=== PATIENT | female | born 1960 | race Caucasian/White ===

== ENCOUNTER 2023-03-04 10:15 | Outpatient (RCR) | payer BC, SELFPAY | END 2023-04-01 14:21 | disposition home or self-care (01) | PROVIDERS: PCP Family Medicine; Visit Provider Orthopaedic Surgery | DX: M17.12 Unilateral primary osteoarthritis, left knee (principal); M25.562 Pain in left knee; G89.29 Other chronic pain; Z51.89 Encounter for other specified aftercare | CPT/HCPCS: 97110; 97112; 97163 ==

== ENCOUNTER 2024-01-29 16:38 | Outpatient (CLI) | payer BC, SELFPAY ==
--- OUTSIDE RECORDS SUMMARY | 2024-02-18 14:44 | XMS_ITS | Clinical Summary ---
Author Organization [facility] [facility] Address [place], [place] [address] Care Team Providers Care Rv Repair Technician Name Role Phone Unavailable Primary Care Provider Unavailabl e Allergies Active Allergy Reactions Criticality Noted Date Comments Acetaminophen Nausea And Vomiting 11/01/2021 Medications Medication Sig Dispensed Refills Start Date End Date Status chlorthalidone (HYGROTON) 25 mg tabletIndications:HTN (hypertension) Take 0.5 Tablets (12.5 mg) by mouth every morning. 45 Tablet 3 09/13/2022 Active potassium chloride (KLOR-CON 10; K-TAB) 10 mEq Controlled-Release tabletIndications:HTN (hypertension) Take 1 Tablet (10 mEq) by mouth once daily with a meal. 90 Tablet 3 09/13/2022 Active estradioL (ESTRACE) 0.01% (0.1 mg/g) vaginal creamIndications:Post menopausal atrophic vaginitis Use the 2 grams vaginally nightly for 1-2 weeks, then use 1 gram one to three times weekly as needed for vaginal dryness after that 42.5 g 3 09/13/2022 Active thiamine (Vitamin B-1) 100 mg tablet Take 1 Tablet (100 mg) by mouth once daily. 0 12/06/2022 Active overnight oximetryIndications:N octurnal hypoxemia For home use. On Room Air no; On Oxygen yes if yes @?2LPM; On CPAP yes; On BiPAP no 1 Each 12/19/2022 Active CPAPIndications:Noctu rnal hypoxemia CPAP machine for home use at pressure 6-15 cmw, nasal mask x1/3month with nasal cushion x2/mo 1 Each 11 12/19/2022 Active albuterol HFA (PRO-AIR; VENTOLIN; PROVENTIL) 90 mcg/actuation inhalerIndications:SO B (shortness of breath) Inhale 2 Puffs by mouth every 4 hours if needed for Shortness Of Breath. 1 Each 1 01/16/2023 Active dextroamphetamine-amp hetamine (Adderall XR) 10 mg Extended-Release capsuleIndications:At tention deficit hyperactivity disorder (ADHD), combined type Take 1 Capsule (10 mg) by mouth once daily. Dose decrease 01/16/23 30 Capsule 01/16/2023 Active lisinopriL (PRINIVIL; ZESTRIL) 20 mg tabletIndications:HTN (hypertension) TAKE ONE TABLET BY MOUTH ONCE DAILY 90 Tablet 10/28/2023 Active Active Problems Problem Noted Date Diagnosed Date Absence of both cervix and uterus, acquired 12/2022 Primary osteoarthritis of left knee 12/21/2022 Attention deficit hyperactiv ity disorder (ADHD), combined type 12/06/2022 HTN (hypertension) 02/27/2022 Chronic constipation 11/01/2021 Immunizations Name Administration Dates Next Due COVID-19 vaccine (Moderna 10 0mcg/0.5mL) PF, MDV 08/13/2021,12/20/2020,11/22/2020 COVID-19 vaccine ([employer] 30mcg/0.3mL) 12YO+ ADRIAN-SUCROSE PF, MDV 02/27/2022 Influenza, IIV4 09/13/2022,08/20/2021 Influenza,CCIIV4 PRESERV FREE 06/08/2020 Td (Age >=7 Years) 04/03/2002 Tdap 02/27/2022,01/14/2008 Family History Medical History Relation Name Comments Cancer-breast Mother Cancer-breast Other Mat. Great Aunt Cancer-ovarian No Family History Relation Name Status Comments Mother Other Mat. Great Aunt Social History Tobacco Use Types Packs/Day Years Used Date Smoking Tobacco: Never Smokeless Tobacco: Never Tobacco Cessation:Counseling Given: Yes PHQ-2 Answer Date Recorded PHQ-2 TOTAL SCORE 2 11/26/2022 Social Connections Answer Date Recorded Frequency of Communication with Friends and Fami ly Not on file 09/16/2023 Financial Resource Strain Answer Date R ecorded Difficulty of Paying Living Expenses 3 09/13/2022 Difficulty of Paying Living Expenses Not on file 09/13/2022 Food Insecurity Answer Date Recorded Worried About Running Out of Food in the Last Ye ar 1 09/13/2022 Transportation Needs Answer Date Record ed Lack of Transportation (Medical) 1 09/13/2022 Housing Stability Answer Date Recorded Unable to Pay for Housing in the Last Year 1 09/13/2022 Sex and Gender Information Value Date Recorded Sex Assigned at Not on file Gender Identity Not on file Sexual Orientation Not on file Obstetrics History Last Filed Vital Signs Vital Sign Reading Time Taken Comments Blood Pressure 133/82 01/03/2023 11:03 AM CDT Pulse 90 01/03/2023 11:03 AM CDT Temperature - - Respiratory Rate - - Oxygen Saturation 98% 01/03/2023 11:03 AM CDT Inhaled Oxygen Concentration - - Weight 105.7 kg (233 lb) 01/03/2023 11:03 AM CDT Height 156.5 cm (5' 1.61) 12/19/2022 11:08 AM C DT Body Mass Index 43.16 12/19/2022 11:08 AM CDT Plan of Treatment Health Maintenance Due Date Last Done Comments Zoster (shingles) series for age 50+ (1 of 2) 2008 COVID-19 vaccine series (2022-24 season) 2023 08/17/2022, 02/27/2022, 08/13/2021, Additional history exists Fecal testing non-DNA (FIT,FOBT,iFOBT) for age 45-75 05/04/2023 05/04/2022 Mammogram for age 45-75 09/19/2023 09/19/2022 Depression screening for age 12+ 11/27/2023 11/26/2022, 11/13/2022, 09/13/2022, Additional history exists DEXA/DXA scan for age 65+ 12/18/2023 Pneumococcal series for age 65+ (1 of 1 - PCV) 12/18/2023 BMI (ht and wt on same day) for age 18+ 12/20/2023 12/19/2022, 09/13/2022, 11/01/2021 Influenza for age 65+ 05/03/2024 09/13/2022 , 08/20/2021, 06/08/2020 Lipids for age 45-75 09/13/2027 09/13/2022, 11/02/19 22 Tetanus booster 02/28/2032 02/27/2022, 12/31, 04/03/2002 Hepatitis C screening for ag e 18-79 Completed 02/27/2022 Tdap Completed 02/27/2022, 01/14/2008 HIV for age 15-65 Completed 09/13/2022 Procedures Procedure Name Priority Date/Time Associated Diagnosis Comments XR MAMMO BILAT SCREENING Routine 09/19/2022 4:14 PM ELECTROMATIC TYPIST Encounter for screening mammogram for malignant neoplasm of breast LC HIV-1/O/2, 4TH GENERATION Routine 09/13/2022 12:43 PM ELECTROMATIC TYPIST Encounter for screening for HIV LC LIPID PANEL AND CHOL/HDL RATIO Routine 09/13/2022 12:43 PM ELECTROMATIC TYPIST Screening for lipid disorders OCCULT BLOOD IFOBT STOOL Routine 05/04/2022 3:48 PM CDT Screening for colorectal cancer ANTI HCV Routine 02/27/2022 10:35 AM CDT Need for hepatitis C screening test from Last 3 Months or Most Recently Relevant to Health Maintenance Results * XR MAMMO BILAT SCREENING (09/19/2022 4:14 PM ELECTROMATIC TYPIST) Anatomical Region Laterality Modality BREASTS, Breast Left, Breast Right Bilateral Mammography Impressions 09/21/2022 3:36 PM ELECTROMATIC TYPIST ??There is no radiographic evidence for malignancy. ??Recommend annual mammograms. MAMMOGRAM ASSESSMENT: ??ACR 1 Negative PATIENTS: You will also receive a letter with your examination results in an easy to read format. ??If you have questions about your results, please contact your referring provider. Narrative 09/21/2022 3:36 PM ELECTROMATIC TYPIST For Patients: As a result of the Century Cures Act, medical imaging exams and procedure reports are released immediately into your electronic medical record. You may view this report before your referring provider. If you have questions, please contact your health care provider. XR MAMMO BILAT SCREENING [[id number]] CLINICAL HISTORY: ??This is an asymptomatic 61 y.o. patient. INDICATION FOR EXAM: Mammogram Screening. TECHNIQUE: CC & MLO views were obtained. ??This study was evaluated with the assistance of Computer-Aided Detection. COMPARISON FILM: Yes 02/26/17 Outside Facility 11/04/14 Outside Facility FINDINGS: ??The breasts have scattered areas of fibroglandular density. There are no dominant masses, suspicious micro calcifications or areas of architectural distortion. Lizzette Pinon PA MAMMO * (ABNORMAL) LC LIPID PANEL AND CHOL/HDL RATIO (09/13/2022 12:43 PM ELECTROMATIC TYPIST) Pathologist [facility] Cholesterol, Total 237(H) 100 - 199 mg/dL 09/15/2022 7:15 AM [facility] Triglycerides 200(H) 0 - 149 mg/dL 09/15/2022 7:15 AM [facility] HDL Cholesterol 45 >39 mg/dL 7:15 AM [facility] ([facility] VLDL Cholesterol Venkat 37 5 - 40 mg/dL 09/15/2022 7:15 AM [facility] LDL Chol Calc (NIH) 155(H) 0 - 99 mg/dL 09/15/2022 7:15 AM [facility] T. Chol/HDL Ratio 5.3(H) 0.0 - 4.4 ratio 09/15/2022 7:15 AM [facility] ([facility]) Comment: ?T. Chol/HDL Ratio ?Men ??Women ?1/2 Avg.Risk ??3.4 ?3.3 ?Avg.Risk ??5.0 ?4.4 ? 2X Avg.Risk ??9.6 ?7.1 ? 3X Avg.Risk 23.4 ?? 11.0 Blood BLOOD SPECIMEN / Unknown Venipuncture / Unknown 09/13/2022 12:43 PM ELECTROMATIC TYPIST 09/13/2022 12:44 PM ELECTROMATIC TYPIST Narrative [facility] ([facility]) - 09/15/2022 7:15 AM ELECTROMATIC TYPIST Performed at: ??01 - [facility] [address], [place] ??[id number] Director Of Cloud Services: Ayden David MD, Phone: ??[phone] [place] [facility] [place] ([facility]) [facility] [id number], * HIV-1/O/2, 4TH GENERATION (09/13/2022 12:43 PM ELECTROMATIC TYPIST) HIV Scr 4th Gen Non Reactive Non Reactive 09/15/2022 11:08 AM ELECTROMATIC TYPIST [facility] ([facility]) Comment: HIV Negative HIV-1/HIV-2 antibodies and HIV-1 p24 antigen were NOT detected. There is no laboratory evidence of HIV infection. Blood BLOOD SPECIMEN / Unknown Venipuncture / Unknown 09/13/2022 12:43 PM ELECTROMATIC TYPIST 09/13/2022 12:44 PM ELECTROMATIC TYPIST Narrative [facility] ([facility]) - 09/15/2022 11:08 AM ELECTROMATIC TYPIST Performed at: ??01 - [facility] [address], [place] ??[id number] Director Of Cloud Services: Ayden David MD, Phone: ??[phone] [place] [facility] ([facility]) [facility] * OCCULT BLOOD IFOBT STOOL (05/04/2022 3:48 PM CDT) STOOL BLOOD ,IFOBT Negative Negative 05/11/2022 10:51 AM CDT [facility] Stool STOOL SPECIMEN / Unknown Non-Blood / Unknown 05/04/2022 3:48 PM CDT 05/10/2022 3:48 PM CDT [place] [facility] [address] [place] [address], * ANTI HCV (02/27/2022 10:35 AM CDT) HEPATITIS C ANTIBODY Non-React zbigniew Non-React zbigniew 02/27/2022 7:22 PM CDT [facility] Comment:Antibodies to HCV no t detected; does not exclude the possibility of exposure to HCV. Blood BLOOD SPECIMEN / Unknown Venipuncture / Unknown 02/27/2022 10:35 AM CDT 02/27/2022 10:38 AM CDT [place] [facility] [place] [address] [place] [address], [place] from Last 3 Months or Most Recently Relevant to Health Maintenance
== END 2024-01-29 16:39 | disposition home or self-care (01) ==
LOC: NFLDREF 02-18 14:42
PROVIDERS: PCP Internal Medicine; Referring Provider Internal Medicine; Visit Provider Internal Medicine
DX: N39.0 Urinary tract infection, site not specified (principal); R39.9 Unspecified symptoms and signs involving the genitourinary system; I10 Essential (primary) hypertension
CPT/HCPCS: 87086; 87186

== ENCOUNTER 2024-03-06 08:11 | Outpatient (CLI) | payer BC, SELFPAY ==
--- OUTSIDE RECORDS SUMMARY | 2024-03-08 09:18 | XMS_ITS | Data Portability ---
Author Organization [facility], [facility] Address [address] [place] [address] Care Team Providers Care Crime Prevention Worker Name Role Phone ANA PATHAK Referring Provider [phone] Assessment No assessment recorded. Plan of Treatment Reminders Order Date Submit Date Provider Last Modified By Organization Details Last Modified Time Details Appointments None recorded. Lab urinalysis , dipstick 2022 023 [facility], [address], [place], [address], 3 16:02:09 culture, urine 2022 023 [facility], [address], [place], [address], 3 09:52:55 Referral patient navigator referral 2022 023 [email or web address] [id number] Not available 3 07:08:48 Procedures None recorded. Surgeries None recorded. Imaging None recorded. Medication Orders Myrbetriq 50 mg tablet,ext ended release [address], [address], 3 16:11:02 Patient TargetsNo targets recorded. Patient Instructions Encounter Date Encounter Id Patient Instructions Last Modified By Organization Details Last Modified Time 01/17/2023 [id number] Lisa present s today for voiding complaints, most likely mixed incontinence - UA: ket 40, pro trace, nitr pos, trac leuk. will culture and call w results, less likely to treat bc asymptomatic - in/out cath: 5cc - cont wiith CPAP usage - diuretic will cause increased freq/urge - stop fluids 2-3 hours before bedtime - We discussed the underlying causes for OAB, as well as the conservative treatments. The OAB Pathway was reviewed, including fluid restriction, bladder irritants, and physical therapy. - Advanced treatments, including PTNS, sacral neuromodulation and Botox were also discussed and compared. Risks including retention, infections, device implant/malfunction , lead migration, repeat treatments all reviewed in detail. For now, we will start with: - anticholinergic: CI with potassium - myrb 50mg QHS - pelvic floor PT: wants to hold - nurse maisha Marshallator - atrophic vaginitis: using 2x/week Some component of stress urinary incontinence - hold for now - pelvic floor PT - refer to MD for consultation for sling Follow up in 2 months [email or web address] Not available 01/17/2023 16:09:57 Reason for Referral Referring Physician: Edison Araujo, Urology, Encounter Date: 01/17/2023 Results Created Date Observation Date Name Description Value Unit Range Abnormal Flag LastModifiedBy Organization Detail LastModifiedTime 01/18/2001/17/2023 UA WITHO UT MICRO PLYMO UTH color-status YELLOW yellow Not Available [facility] [address] [facility] [address], [place], [address], 01/17/2023 16:02:09 01/18/20 23 01/17/2023 UA WITHO UT MICRO PLYMO UTH clarity-stat us CLEAR clear Not Available [facility] [address] [facility] [address], [place], [address], 01/17/2023 16:02:09 01/18/20 23 01/17/2023 UA WITHO UT MICRO PLYMO UTH glucose-stat us NEGATI VE mg/dL negati ve Not Available [facility] [address] [facility] [address], [place], [address], 01/17/2023 16:02:09 01/18/20 23 01/17/2023 UA WITHO UT MICRO PLYMO UTH bilirubin-ur ine NEGATI VE negati ve Not Available [facility] [address] [facility] [address], [place], [address], 01/17/2023 16:02:09 01/18/20 23 01/17/2023 UA WITHO UT MICRO PLYMO UTH ketones-stat us 40 MG/DL mg/dL negati ve abnormal Not Available [facility] [address] [facility] [address], [place], [address], 01/17/2023 16:02:09 01/18/20 23 01/17/2023 UA WITHO UT MICRO PLYMO UTH SG-status 1.015 1.00-1 .03 Not Available [facility] [address] [place] [address] [address], [place], [address], 01/17/2023 16:02:09 01/18/20 23 01/17/2023 UA WITHO UT MICRO PLYMO UTH pH-status 7.0 5.00-8 .00 Not Available [facility] [address] [facility] [address], [place], [address], 01/17/2023 16:02:09 01/18/20 23 01/17/2023 UA WITHO UT MICRO PLYMO UTH protein-stat us TRACE mg/dL negati ve abnormal Not Available [facility] [address] [facility] [address], [place], [address], 01/17/2023 16:02:09 01/18/20 23 01/17/2023 UA WITHO UT MICRO PLYMO UTH urobilinogen -status 0.2 E.U./D L E.U./ dL 0.2 E.U./d L Not Available [facility] [address] [facility] [address], [place], [address], 01/17/2023 16:02:09 01/18/20 23 01/17/2023 UA WITHO UT MICRO PLYMO UTH nitrites-sta tus POSITI VE negati ve abnormal Not Available [facility] [address] [facility] [address], [place], [address], 01/17/2023 16:02:09 01/18/20 23 01/17/2023 UA WITHO UT MICRO PLYMO UTH blood-urine NEGATI VE negati ve Not Available [facility] [address] [facility] [address], [place], [address], 01/17/2023 16:02:09 01/18/20 23 01/17/2023 UA WITHO UT MICRO PLYMO UTH leuko-status TRACE negati ve abnormal Not Available [facility] [address] [facility] [address], [place], [address], 01/17/2023 16:02:09 01/18/20 23 01/17/2023 UA WITHO UT MICRO PLYMO UTH specimen type VOIDED Not Available [facility] [address] [facility] [address], [place], [address], 01/17/2023 16:02:09 01/18/20 23 01/17/2023 UA WITHO UT MICRO PLYMO UTH performed by PALAK Cruz Not Available [facility] [address] [facility] [address], [place], [address], 01/17/2023 16:02:09 01/18/20 23 01/17/2023 UA WITHO UT MICRO PLYMO UTH total urine volume (mL) 30 /mL Not Available [facility] [address] [facility] [address], [place], [address], 01/17/2023 16:02:09 01/18/20 23 01/17/2023 URINE CULTU RE final report MICROB IOLOGY RESULT S abnormal Not Available [facility] [address] [facility] [address], [place], [address], 01/21/2023 09:52:55 Result Notes None recorded. Problems Name Status Onset Date Resolution Date Notes Provider Name and Address Organization Details Recorded Time Increased frequency of urination Active 01/18/20 23 LISA ARAUJO [facility] [address] [place] [address],[address] [place] [address], [phone], [facility] 01/17/2023 11:18:21 Nocturia Active 01/18/20 23 LISA VAN [address], [address], [facility] 01/17/2023 11:18:24 Mixed urinary incontinence Active 01/18/20 23 LISA VAN [address], [address], [facility] 01/17/2023 15:54:55 Urinary tract infectious disease Active 01/22/20 23 LISA VAN [facility] [address] [place] [address],[address], [address], [facility] 01/21/2023 11:58:05 Problem Notes None recorded. Procedures Surgical History Date Name Laterality Status Provider Name and Address Organization Details Recorded Time 01/18/20 23 Past Data Reviewed completed LISARONY ARAUJO [address], [address], [facility] 01/17/2023 11:20:07 01/18/20 23 In and Out Catheterization- female completed LISA ARAUJO [address], [address], [facility] 01/17/2023 16:08:31 05/04/20 22 Fecal blood scrn immunoassay [facility] 14:51:44 02/02/19 69 Diagnostic colonoscopy completed Not Available Health Note 01/17/2023 11:00:17 Excise epiphyseal bar completed Not Available Health Note 01/17/2023 11:00:17 Total hysterectomy completed Not Available Health Note 01/17/2023 11:00:17 Imaging Results None recorded. Procedure Notes None recorded. Medical Equipment None Reported. Allergies Allergen ID Allergen Name Allergen Category Reaction Reaction Severity Criticality Documentation Date Start Date Code Code System Note Provider Name and Address Organization Details Recorded Time 513118 acetamino phen medicatio n dizziness nausea Not available Not available Not available 01/17/2023 161 RxNorm Not Available Health Note 11:00:16 Medications Name Sig Start Date Stop Date Status Note LastModified by Organization Details LastModified Time flowflex kit test 01/17 completed Not Available Not Available Not Available flowflex covid-19 ag home t FOR HOME USE 01/17 completed Not Available Not Available Not Available lisinopril 20 mg tablet active Not Available Not Available Not Available potassium chloride ER 10 mEq tablet,exte nded release active Not Available Not Available Not Available chlorthalid one 25 mg tablet active Not Available Not Available Not Available ciprofloxac in 250 mg tablet 01/17 completed Not Available Not Available Not Available dextroamphe tamine-amph etamine ER 20 mg 24hr capsule,ext end release 20 mg 1/day active Not Available Not Available No t Available cephalexin 500 mg capsule 01/17 completed Not Available Not Available Not Available methylpheni date ER 20 mg tablet,exte nded release 01/17 completed Not Available Not Available Not Available dextroamphe tamine-amph etamine ER 10 mg 24hr capsule,ext end release TAKE ONE CAPSULE(1 0MG) BY MOUTH ONCE DAILY. active Not Available Not Available No t Available estradiol 0.01% (0.1 mg/gram) vaginal cream active Not Available Not Available Not Available albuterol sulfate HFA 90 mcg/actuati on aerosol inhaler INHALE 2 PUFFS BY MOUTH EVERY 4 HOURS IF NEEDED FOR SHORTNESS OF BREATH. active Not Available Not Available No t Available nitrofurant oin monohydrate /macrocryst als 100 mg capsule TAKE 1 CAPSULE BY MOUTH EVERY 12 HOURS FOR 10 DAYS. active Not Available Not Available No t Available Myrbetriq 50 mg tablet,exte nded release Take 1 tablet every day by oral route. 2022 active Not Available Not Available Not Avai lable Vitals Date Recorded Body mass index (BMI) Body weight Body height Provider Name and Address Organization Details Last Updated DateTime 01/17/2023 41.6 kg/m2 008949.3334 70366 g 160.02 cm Not Available Health Note 01/17/2023 15:30:35 Social History Question Answer Notes LastModified by Organizat ion Details LastModified Time Tobacco Smoking Status Never Smoker Not Available Health Note 01/17/2023 11:00:17 What Is Your Level Of Alcohol Consumption? Occasional [email or web address] Information not available 01/17/2023 What Is Your Level Of Caffeine Consumption? Occasional [email or web address] Information not available 01/17/2023 How Much Tobacco Do You Chew? None [email or web address] Information not available 01/17/2023 Do You Or Have You Ever Used E-cigarettes Or Vape? Never Used Electronic Cigarettes [email or web address] Information not available 01/17/2023 Number Of Pregnancies 1 [email or web address] Information not available 01/17/2023 Number Of Vaginal Deliveries 0 [email or web address] Information not available 01/17/2023 Number Of Caesarean Sections 0 [email or web address] Information not available 01/17/2023 Could You Be ? No [email or web address] Information not available 01/17/2023 What Was The Date Of Your Most Recent Tobacco Screening? 01/17/2023 [email or web address] Information not available 01/17/2023 What Is Your Relationship Status? [email or web address] Information not available 01/17/2023 Are You Sexually Active? No [email or web address] Information not available 01/17/2023 Do You Or Have You Ever Used Smokeless Tobacco? Never Used Smokeless Tobacco [email or web address] Information not available 01/17/2023 Do You Use Any Illicit Or Recreational Drugs? No [email or web address] Information not available 01/17/2023 Has Tobacco Cessation Counseling Been Provided? Yes [email or web address] Information not available 01/17/2023 On What Date Was Tobacco Cessation Counseling Provided? 01/17/2023 [email or web address] Information not available 01/17/2023 Sex: Unknown Functional Status None recorded. Mental Status None recorded. Family History Relationship Description Onset Age of this Age Resolved Age Notes Mother Family history of br east cancer Medical History Condition Response Sexually Transmitted Infection N Diabetes N Bleeding Disorder N High Blood Pressure Y Kidney Stones N Cancer N Lung Disease N Depression Y High Cholesterol N GERD/Acid Reflux Y Heart Disease N Gynecological History Statement/Question Response If Post Menopausal, Age at Menopause 38 Hormone Therapy Y Sexually Active? N Obstetrics History GPAL:G 0 P 0 0 0 0 Immunizations Vaccine Type Date Status Provider Name and Address Organization Details Recorded Time influenza, unspecified formulation 08/17/2022 completed Zuleika love, [facility] 01/17/2023 15:37:21 SARS-COV-2 (COVID-19) vaccine, UNSPECIFIED 08/17/2022 completed Zuleika love, [facility] 01/17/2023 15:37:21 Influenza, MDCK, quadrivalent, PF 06/08/2020 completed Zuleika love, [facility] 01/17/2023 15:37:21 COVID-19, mRNA, LNP-S, PF, 100 mcg/0.5mL dose or 50 mcg/0.25mL dose 11/22/2020 completed Zuleika love, [facility] 01/17/2023 15:37:21 COVID-19, mRNA, LNP-S, PF, 100 mcg/0.5mL dose or 50 mcg/0.25mL dose 12/20/2020 completed Zuleika love, [facility] 01/17/2023 15:37:21 COVID-19, mRNA, LNP-S, PF, 100 mcg/0.5mL dose or 50 mcg/0.25mL dose 08/13/2021 completed Zuleika love, [facility] 01/17/2023 15:37:21 COVID-19, mRNA, LNP-S, PF, 30 mcg/0.3 mL dose, agapito-sucrose 02/27/2022 completed Zuleika love, [facility] 01/17/2023 15:37:21 COVID-19, mRNA, LNP-S, bivalent, PF, 30 mcg/0.3 mL dose 08/17/2022 completed Zuleika love, [facility] 01/17/2023 15:37:21 Tdap 01/14/2008 completed Zuleika love, [facility] 01/17/2023 15:37:21 Tdap 02/27/2022 [facility]/17/[facility]23 15:37:21 Td (adult), 2 Lf tetanus toxoid, preservative free, adsorbed 04/03/2002 completed Zuleika love, [facility] 01/17/2023 15:37:21 Influenza, split virus, quadrivalent, PF 09/13/2022 completed Mikesinacarter Paul ivan, [facility] 01/17/2023 15:37:21 Influenza, split virus, quadrivalent, PF 08/20/2021 completed Mikesinacarter Paul ivan, [facility] 01/17/2023 15:37:21 Past Encounters Encounter ID Performer Location Encounter Start Date Encounter Closed Date Diagnosis/Indication Diagnosis SNOMED-CT Code [id number] LISA ARAUJO, PAC [facility] [address] [place] [address] 01/17/2023 15:29:06 01/18/2023 10:13:22 Increased frequency of urination [id number] Nocturia [id number] Mixed urin jordan incontinence 919681477 Health Concerns Section Related Observation LastModified by Organization Detai ls LastModified Time None Recorded Concern Status LastModified by Organization Details LastModified Time None Recorded Advance Directives Directive None Recorded Payers Encounter Date Sequence Insurance Name Policy Number Policy Kessler Covered Member ID Kessler Member ID Guarantor Name 01/17/2023 1 [place] [id number] Audie Diaz [id number] Lisa Marks Notes Date Note Type Note Provider Name and Address Organization Details Recorded Time 01/17/2023 text/html HPI Notes: 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 triggered by runnign water, urgency. urge leakage. MARTÍNEZ. Denies: hematuria using leakproof underwear, sometimes needs to change them (1-2x) Has tried: estradiol cream chlorthalidone 25mg LYDIA, CPAP - did improve nocturia frequent UTis int he past, feels theyve improved Hydration: 60 oz water Caffeine: 1 cup coffee/AM Chronic low back pain: 0 BMs: constipated Vaginal deliveries: 0 s/p hyst Chief complaint: Incontinence Incontinence: Began: 3 Years ago Incontinent of: Urine Associated symptoms: Frequent urination at night Frequency: Gradually Worse with: Diet soda or Artificial sweeteners Severity: Worse Interference with their personal, social, or work life: Definite but manageable Progression: Severe overall Overactive Bladder Pathway Questionnaire: Uses the restroom: 8 times per day Uses the restroom (daytime): every 3 hours Uses the restroom (nighttime): every 1.5 hours Accidents: 1 per day Pads: using 0 per day Urogenital Distress Inventory (FRANCINE-6): [3] Frequent urination: Greatly [3] Urine leakage related to the feeling of urgency: Greatly [3] Urine leakage related to physical activity, coughing or sneezing: Greatly [2] Small amounts of urine leakage (drops): Moderately [2] Difficulty emptying your bladder: Moderately [1] Pain or discomfort in the lower abdominal or genital area: Slightly Incontinence Impact Questionnaire (IIQ-7): [1] Ability to do hot plate plywood press offbearer (cooking, housecleaning): Slightly [2] Physical recreation such as walking, or other exercise: Moderately [2] Ability to attend entertainment activities (movie, concerts): Moderately [2] Ability to travel by car more than 30 minutes from home: Moderately [2] Participation in social activities outside your home: Moderately [2] Emotional health (nervousness, depression, etc): Moderately [3] [place] frustrated: Greatly LISA ARAUJO, JOJO [address], [place], [address], [facility] 01/17/2023 16:11:05 OBGyn Episode No OBEpisode recorded.
--- OUTSIDE RECORDS SUMMARY | 2024-03-08 09:18 | XMS_ITS | Clinical Summary ---
Author Organization [facility] Address [place], [place] [address] Care Team Providers Care Transfer Car Operator Drier Name Role Phone Unavailable Primary Care Provider [...] 10 0mcg/0.5mL) PF, MDV 08/13/2021,12/20/2020,11/22/2020 COVID-19 vaccine (Sedicidodici-Bio NTech 30mcg/0.3mL) 12YO+ ADRIAN-SUCROSE PF, MDV 02/27/2022 [...] MAMMO BILAT SCREENING Routine 09/19/2022 4:14 PM BEADER Encounter for screening mammogram for malignant neoplasm of breast LC HIV-1/O/2, 4TH GENERATION Routine 09/13/2022 12:43 PM BEADER Encounter for screening for HIV LC LIPID PANEL AND CHOL/HDL RATIO Routine 09/13/2022 12:43 PM BEADER Screening for lipid disorders OCCULT BLOOD IFOBT STOOL Routine 05/04/2022 3:48 PM CDT Screening for colorectal cancer ANTI HCV Routine 02/27/2022 10:35 AM CDT Need for hepatitis C screening test from Last 3 Months or Most Recently Relevant to Health Maintenance Results * XR MAMMO BILAT SCREENING (09/19/2022 4:14 PM BEADER) Anatomical Region Laterality Modality BREASTS, Breast Left, Breast Right Bilateral Mammography Impressions 09/21/2022 3:36 PM BEADER ??There is no radiographic evidence for malignancy. ??Recommend annual mammograms. MAMMOGRAM ASSESSMENT: ??ACR 1 Negative PATIENTS: You will also receive a letter with your examination results in an easy to read format. ??If you have questions about your results, please contact your referring provider. Narrative 09/21/2022 3:36 PM BEADER For Patients: As a result of the Century Cures Act, medical imaging exams and procedure reports are released immediately into your electronic medical record. You may view this report before your referring provider. If you have questions, please contact your health care provider. XR MAMMO BILAT SCREENING [[id number]] CLINICAL HISTORY: ??This is an asymptomatic 61 [...] PANEL AND CHOL/HDL RATIO (09/13/2022 12:43 PM BEADER) Pathologist [facility] Cholesterol, Total 237(H) 100 - 199 mg/dL 09/15/2022 7:15 AM FOR ESOTERIC TESTING (CET) Triglycerides 200(H) 0 - 149 mg/dL 09/15/2022 7:15 AM FOR ESOTERIC TESTING (CET) HDL Cholesterol 45 >39 mg/dL 7:15 AM FOR ESOTERIC TESTING (CET) VLDL Cholesterol Venkat 37 5 - 40 mg/dL 09/15/2022 7:15 AM FOR ESOTERIC TESTING (CET) LDL Chol Calc (NIH) 155(H) 0 - 99 mg/dL 09/15/2022 7:15 AM FOR ESOTERIC TESTING (CET) T. Chol/HDL Ratio 5.3(H) 0.0 - 4.4 ratio 09/15/2022 7:15 AM FOR ESOTERIC TESTING (CET) Comment: ?T. Chol/HDL Ratio ?Men ??Women ?1/2 Avg.Risk ??3.4 ?3.3 ?Avg.Risk ??5.0 ?4.4 ? 2X Avg.Risk ??9.6 ?7.1 ? 3X Avg.Risk 23.4 ?? 11.0 Blood BLOOD SPECIMEN / Unknown Venipuncture / Unknown 09/13/2022 12:43 PM BEADER 09/13/2022 12:44 PM BEADER Narrative [facility] ESOTERIC TESTING (CET) - 09/15/2022 7:15 AM BEADER Performed at: ??01 - [facility] [address] [place], [place] ??[id number] Finishing Inspector: Ayden David MD, Phone: ??[phone] [place] SEND OUTS [facility] FOR ESOTERIC TESTING (CET) [facility] [place] [id number], * HIV-1/O/2, 4TH GENERATION (09/13/2022 12:43 PM BEADER) HIV Scr 4th Gen Non Reactive Non Reactive 09/15/2022 11:[address] [facility] FOR ESOTERIC TESTING (CET) Comment: HIV Negative HIV-1/HIV-2 antibodies and HIV-1 p24 antigen were NOT detected. There is no laboratory evidence of HIV infection. Blood BLOOD SPECIMEN / Unknown Venipuncture / Unknown 09/13/2022 12:43 PM BEADER 09/13/2022 12:44 PM BEADER Narrative [facility] FOR ESOTERIC TESTING (CET) - 09/15/2022 11:08 AM BEADER Performed at: ??01 - [facility] [address], [place] ??[id number] Finishing Inspector: Ayden David MD, Phone: ??[phone] [place] [facility] FOR [facility]OTERIC TESTING (CET) [facility] [address] * OCCULT BLOOD IFOBT STOOL (05/04/2022 3:48 PM CDT) STOOL BLOOD ,IFOBT Negative Negative 05/11/2022 10:51 AM CDT [facility] Stool STOOL SPECIMEN / Unknown Non-Blood / Unknown 05/04/2022 3:48 PM CDT 05/10/2022 3:48 PM CDT [place] [facility] [address] [place] [address], * ANTI HCV (02/27/2022 10:35 AM CDT) HEPATITIS C ANTIBODY Non-React [email or web address] Non-React [email or web address] 02/27/2022 7:22 PM CDT [facility] Comment:Antibodies to HCV no t detected; does not exclude the possibility of exposure to HCV. Blood BLOOD SPECIMEN / Unknown Venipuncture / Unknown 02/27/2022 10:35 AM CDT 02/27/2022 10:38 AM CDT [place] [facility] [address] [place] [address], [place] from Last 3 Months or Most Recently Relevant to Health Maintenance
== END 2024-03-06 08:12 | disposition home or self-care (01) ==
LOC: NFLDREF 03-08 09:16
PROVIDERS: PCP Internal Medicine; Referring Provider Internal Medicine; Visit Provider Internal Medicine
DX: I10 Essential (primary) hypertension (principal); Z13.220 Encounter for screening for lipoid disorders
CPT/HCPCS: 80053; 80061

== ENCOUNTER 2024-03-19 11:00 | Outpatient (CLI) | payer BC, SELFPAY ==
--- OUTSIDE RECORDS SUMMARY | 2024-03-23 17:34 | XMS_ITS | Data Portability ---
Author Organization [facility], [facility] Address [address] [place] [address] Care Team Providers Care Fish Flipper Name Role Phone ANA PATHAK Referring Provider [phone] Assessment No assessment recorded. Plan of Treatment Reminders Order Date Submit Date Provider Last Modified By Organization Details Last Modified Time Details Appointments None recorded. Lab urinalysis , dipstick 2022 023 [facility], [address], [place], [address], 3 16:02:09 culture, urine 2022 023 [facility], [address], [place], [address], 3 09:52:55 Referral patient navigator referral 2022 023 [email or web address] 5 Not available 3 07:08:48 Procedures None recorded. Surgeries None recorded. Imaging None recorded. Medication Orders Myrbetriq 50 mg tablet,ext ended release 20[email or web address], [address], 3 16:11:02 Patient TargetsNo targets recorded. Patient Instructions Encounter Date Encounter Id Patient Instructions Last Modified By Organization Details Last Modified Time 01/17/2023 [id number] Lisa present s today for voiding complaints, [...] for sling Follow up in 2 months Not available 01/17/2023 16:09:57 Reason for Referral Referring Physician: Edison Araujo, Urology, Encounter Date: 01/17/2023 Results Created Date Observation Date Name Description Value Unit Range Abnormal Flag LastModifiedBy Organization Detail LastModifiedTime 01/18/2001/17/2023 UA WITHO UT MICRO PLYMO UTH color-status YELLOW yellow Not Available [facility] [address] [facility] [address], [place], [address], 01/17/2023 16:02:09 01/18/20 23 01/17/2023 UA WITHO UT MICRO PLYMO UTH clarity-stat us CLEAR clear Not Available [facility] [address] [facility] [address], [place], [address], 01/17/2023 16:02:09 01/18/20 23 01/17/2023 UA WITHO UT MICRO PLYMO UTH glucose-stat us NEGATI VE mg/dL negati ve Not Available [facility] [address] [facility] [address], [place], [address], 01/17/2023 16:02:09 01/18/20 23 01/17/2023 UA WITHO UT MICRO PLYMO UTH bilirubin-ur ine NEGATI VE negati ve Not Available [facility] [address] [facility] [address], [place], [address], 01/17/2023 16:02:09 01/18/20 23 01/17/2023 UA WITHO UT MICRO PLYMO UTH ketones-stat us 40 MG/DL mg/dL negati ve abnormal Not Available [facility] [address] [facility] [address], [place], [address], 01/17/2023 16:02:09 01/18/20 23 01/17/2023 UA WITHO UT MICRO PLYMO UTH SG-status 1.015 1.00-1 .03 Not Available [facility] [address] [place] [address] [address], [place], [address], 01/17/2023 16:02:09 01/18/20 23 01/17/2023 UA WITHO UT MICRO PLYMO UTH pH-status 7.0 5.00-8 .00 Not Available [facility] [address] [facility] [address], [place], [address], 01/17/2023 16:02:09 01/18/20 23 01/17/2023 UA WITHO UT MICRO PLYMO UTH protein-stat us TRACE mg/dL negati ve abnormal Not Available [facility] [address] [facility] [address], [place], [address], 01/17/2023 16:02:09 01/18/20 23 01/17/2023 UA WITHO UT MICRO PLYMO UTH urobilinogen -status 0.2 E.U./D L E.U./ dL 0.2 E.U./d L Not Available [facility] [address] [facility] [address], [place], [address], 01/17/2023 16:02:09 01/18/20 23 01/17/2023 UA WITHO UT MICRO PLYMO UTH nitrites-sta tus POSITI VE negati ve abnormal Not Available [facility] [address] [facility] [address], [place], [address], 01/17/2023 16:02:09 01/18/20 23 01/17/2023 UA WITHO UT MICRO PLYMO UTH blood-urine NEGATI VE negati ve Not Available [facility] [address] [facility] [address], [place], [address], 01/17/2023 16:02:09 01/18/20 23 01/17/2023 UA WITHO UT MICRO PLYMO UTH leuko-status TRACE negati ve abnormal Not Available [facility] [address] [facility] [address], [place], [address], 01/17/2023 16:02:09 01/18/20 23 01/17/2023 UA WITHO UT MICRO PLYMO UTH specimen type VOIDED Not Available [facility] [address] [facility] [address], [place], [address], 01/17/2023 16:02:09 01/18/20 23 01/17/2023 UA WITHO UT MICRO PLYMO UTH performed by PALAK Cruz Not Available [facility] [address] [facility] [address], [place], [address], 01/17/2023 16:02:09 01/18/20 23 01/17/2023 UA WITHO UT MICRO PLYMO UTH total urine volume (mL) 30 /mL Not Available [facility] [address] [facility] [address], [place], [address], 01/17/2023 16:02:09 01/18/20 23 01/17/2023 URINE CULTU RE final report MICROB IOLOGY RESULT S abnormal Not Available [facility] [address] [facility] [address], [place], [address], 01/21/2023 09:52:55 Result Notes None recorded. Problems Name Status Onset Date Resolution Date Notes Provider Name and Address Organization Details Recorded Time Increased frequency of urination Active 01/18/20 23 LISA ARAUJO [facility] [address] [place] [address],[address] [place] [address], [address], [facility] 01/17/2023 11:18:21 Nocturia Active 01/18/20 23 LISA VAN [address], [address], [facility] 01/17/2023 11:18:24 Mixed urinary incontinence Active 01/18/20 23 LISA VAN [address], [address], [facility] 01/17/2023 15:54:55 Urinary tract infectious disease Active 01/22/20 23 LISA VAN [facility] [address] [place] [address],[address], [address], [facility] 01/21/2023 11:58:05 Problem Notes None recorded. Procedures Surgical History Date Name Laterality Status Provider Name and Address Organization Details Recorded Time 01/18/20 23 Past Data Reviewed completed LISARONY ARAUJO [address], [address], [facility] 01/17/2023 11:20:07 01/18/20 23 In and Out Catheterization- female completed LISA ARAUJO [address], [address], [facility] 01/17/2023 16:08:31 05/04/20 22 Fecal blood [facility] 14:51:44 02/02/19 69 Diagnostic colonoscopy completed [...] Name and Address Organization Details Recorded Time 744325 acetamino phen medicatio n dizziness nausea Not available Not available Not available 01/17/2023 161 RxNorm Not Available Health Note 11:00:16 Medications Name Sig Start Date Stop Date Status Note LastModified by Organization Details LastModified Time flowflex covid-19 ag home t FOR HOME USE 01/17 completed Not Available Not Available Not Available flowflex kit test 01/17 completed Not Available [...] Details Last Updated DateTime 01/17/2023 41.6 kg/m2 080760.7166 97531 g 160.02 cm Not Available Health Note [...] Has Tobacco Cessation Counseling Been Provided? Yes [email or web address] Information not available 01/17/2023 On What Date Was Tobacco Cessation Counseling Provided? 01/17/2023 [email or web address] Information not available 01/17/2023 Sex: Unknown Functional Status None recorded. Mental Status None recorded. Family History Relationship Description Onset Age of this Age Resolved Age Notes Mother Family history of br east cancer Medical History Condition Response High Blood Pressure Y Kidney Stones N Lung Disease N Depression Y GERD/Acid Reflux Y Sexually Transmitted Infection N Diabetes N Bleeding Disorder N Cancer N High Cholesterol N Heart Disease N Gynecological History Statement/Question Response If Post Menopausal, Age at Menopause 38 Hormone Therapy Y Sexually Active? N Obstetrics History GPAL:G 0 P 0 0 0 0 Immunizations Vaccine Type Date Status Provider Name and Address Organization Details Recorded Time influenza, unspecified formulation 08/17/2022 completed Zuleika love, [facility] 01/17/2023 15:37:21 SARS-COV-2 (COVID-19) vaccine, UNSPECIFIED 08/17/2022 completed Zuleika love, [facility] 01/17/2023 15:37:21 Influenza, MDCK, quadrivalent, PF 06/08/2020 completed Zuleika love, [facility] 01/17/2023 15:37:21 COVID-19, mRNA, LNP-S, PF, 100 mcg/0.5mL dose or 50 mcg/0.25mL dose 11/22/2020 completed Zuleika love, [facility] 01/17/2023 15:37:21 COVID-19, mRNA, LNP-S, PF, 100 mcg/0.5mL dose or 50 mcg/0.25mL dose 12/20/2020 completed Zuleika love, [facility] 01/17/2023 15:37:21 COVID-19, mRNA, LNP-S, PF, 100 mcg/0.5mL dose or 50 mcg/0.25mL dose 08/13/2021 completed Zuleika love, [facility] 01/17/2023 15:37:21 COVID-19, mRNA, LNP-S, PF, 30 mcg/0.3 mL dose, agapito-sucrose 02/27/2022 completed Zuleika love, [facility] 01/17/2023 15:37:21 COVID-19, mRNA, LNP-S, bivalent, PF, 30 mcg/0.3 mL dose 08/17/2022 completed Zuleika love, [facility] 01/17/2023 15:37:21 Tdap 01/14/2008 completed Zuleika love, [facility] 01/17/2023 15:37:21 Tdap 02/27/2022 [facility] 15:37:21 Td (adult), 2 Lf tetanus toxoid, preservative free, adsorbed 04/03/2002 completed Zuleika love, [facility] 01/17/2023 15:37:21 Influenza, split virus, quadrivalent, PF 09/13/2022 completed Mikesinacarter Paul ivan, [facility] 01/17/2023 15:37:21 Influenza, split virus, quadrivalent, PF 08/20/2021 completed Mikesinacarter Pual ivan, [facility] 01/17/2023 15:37:21 Past Encounters Encounter ID Performer Location Encounter Start Date Encounter Closed Date Diagnosis/Indication Diagnosis SNOMED-CT Code [id number] LISA ARAUJO, PAC [facility] [address] [place] [address] 01/17/2023 15:29:06 01/18/2023 10:13:22 Increased frequency of urination [id number] Nocturia [id number] Mixed urin jordan incontinence [id number] Health Concerns Section Related Observation LastModified by Organization Detai ls LastModified Time None Recorded Concern Status LastModified by Organization Details LastModified Time None Recorded Advance Directives Directive None Recorded Payers Encounter Date Sequence Insurance Name Policy Number Policy Kessler Covered Member ID Kessler Member ID Guarantor Name 01/17/2023 1 [place] [id number] Audie iDaz [id number] Lisa Marks Notes Date Note Type Note Provider Name and Address Organization Details Recorded Time 01/17/2023 text/html HPI Notes: 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 triggered by runnign water, urgency. [...] Impact Questionnaire (IIQ-7): [1] Ability to do technology services manager (cooking, housecleaning): Slightly [2] Physical recreation such as walking, or other exercise: Moderately [2] Ability to attend entertainment activities (movie, concerts): Moderately [2] Ability to travel by car more than 30 minutes from home: Moderately [2] Participation in social activities outside your home: Moderately [2] Emotional health (nervousness, depression, etc): Moderately [3] [place] frustrated: Greatly LISA ARAUJO, JOJO [address] [facility],[address], [place], [address], [facility] 01/17/2023 16:11:05 OBGyn Episode No OBEpisode recorded.
--- OUTSIDE RECORDS SUMMARY | 2024-03-23 17:34 | XMS_ITS | Clinical Summary ---
Author Organization [employer] [facility] Address [place], [place] [address] Care Team Providers Care Ski Patroller Name Role Phone Unavailable Primary Care Provider [...] 10 0mcg/0.5mL) PF, MDV 08/13/2021,12/20/2020,11/22/2020 COVID-19 vaccine ([employer] NTech 30mcg/0.3mL) 12YO+ ADRIAN-SUCROSE PF, MDV 02/27/2022 [...] MAMMO BILAT SCREENING Routine 09/19/2022 4:14 PM ENGAGEMENT SPECIALIST Encounter for screening mammogram for malignant neoplasm of breast LC HIV-1/O/2, 4TH GENERATION Routine 09/13/2022 12:43 PM ENGAGEMENT SPECIALIST Encounter for screening for HIV LC LIPID PANEL AND CHOL/HDL RATIO Routine 09/13/2022 12:43 PM ENGAGEMENT SPECIALIST Screening for lipid disorders OCCULT BLOOD IFOBT STOOL Routine 05/04/2022 3:48 PM CDT Screening for colorectal cancer ANTI HCV Routine 02/27/2022 10:35 AM CDT Need for hepatitis C screening test from Last 3 Months or Most Recently Relevant to Health Maintenance Results * XR MAMMO BILAT SCREENING (09/19/2022 4:14 PM ENGAGEMENT SPECIALIST) Anatomical Region Laterality Modality BREASTS, Breast Left, Breast Right Bilateral Mammography Impressions 09/21/2022 3:36 PM ENGAGEMENT SPECIALIST ??There is no radiographic evidence for malignancy. ??Recommend annual mammograms. MAMMOGRAM ASSESSMENT: ??ACR 1 Negative PATIENTS: You will also receive a letter with your examination results in an easy to read format. ??If you have questions about your results, please contact your referring provider. Narrative 09/21/2022 3:36 PM ENGAGEMENT SPECIALIST For Patients: As a result of the Century Cures Act, medical imaging exams and procedure reports are released immediately into your electronic medical record. You may view this report before your referring provider. If you have questions, please contact your health care provider. XR MAMMO BILAT SCREENING [[id number]] CLINICAL HISTORY: ??This is an asymptomatic 61 [...] PANEL AND CHOL/HDL RATIO (09/13/2022 12:43 PM ENGAGEMENT SPECIALIST) Pathologist [facility] Cholesterol, Total 237(H) 100 - 199 mg/dL 09/15/2022 7:15 AM [facility] Triglycerides 200(H) 0 - 149 mg/dL 09/15/2022 7:15 AM [facility] HDL Cholesterol 45 >39 mg/dL 7:15 AM [facility] ([facility] VLDL Cholesterol Venkat 37 5 - 40 mg/dL 09/15/2022 7:15 AM [facility] ([facility]) LDL Chol Calc (NIH) 155(H) 0 - 99 mg/dL 09/15/2022 7:15 AM [facility] ([facility] T. Chol/HDL Ratio 5.3(H) 0.0 - 4.4 ratio 09/15/2022 7:15 AM [facility] ([facility]) Comment: ?T. Chol/HDL Ratio ?Men ??Women ?1/2 Avg.Risk ??3.4 ?3.3 ?Avg.Risk ??5.0 ?4.4 ? 2X Avg.Risk ??9.6 ?7.1 ? 3X Avg.Risk 23.4 ?? 11.0 Blood BLOOD SPECIMEN / Unknown Venipuncture / Unknown 09/13/2022 12:43 PM ENGAGEMENT SPECIALIST 09/13/2022 12:44 PM ENGAGEMENT SPECIALIST Narrative [facility] ([facility]) - 09/15/2022 7:15 AM ENGAGEMENT SPECIALIST Performed at: ??01 - [facility] [address], [place] ??[id number] Suction Roller: Ayden David MD, Phone: ??[phone] [place] [facility] ([facility]) [employer] [place] [id number], * HIV-1/O/2, 4TH GENERATION (09/13/2022 12:43 PM ENGAGEMENT SPECIALIST) HIV Scr 4th Gen Non Reactive Non Reactive 09/15/2022 11:08 AM ENGAGEMENT SPECIALIST [facility] ([facility]) Comment: HIV Negative HIV-1/HIV-2 antibodies and HIV-1 p24 antigen were NOT detected. There is no laboratory evidence of HIV infection. Blood BLOOD SPECIMEN / Unknown Venipuncture / Unknown 09/13/2022 12:43 PM ENGAGEMENT SPECIALIST 09/13/2022 12:44 PM ENGAGEMENT SPECIALIST Narrative [facility] ([facility]) - 09/15/2022 11:08 AM ENGAGEMENT SPECIALIST Performed at: ??[facility] - [facility] [address], [place] [id number] Suction Roller: Ayden David MD, Phone: ??[phone] [place] [facility] ([facility]) [employer] * OCCULT BLOOD IFOBT STOOL (05/04/2022 3:48 PM CDT) STOOL BLOOD ,IFOBT Negative Negative 05/11/2022 10:51 AM CDT [facility] Stool STOOL SPECIMEN / Unknown Non-Blood / Unknown 05/04/2022 3:48 PM CDT 05/10/2022 3:48 PM CDT [place] [facility] [address] [place] [address], * ANTI HCV (02/27/2022 10:35 AM CDT) HEPATITIS C ANTIBODY Non-React zbigniew Non-React zbigniew 02/27/2022 7:22 PM CDT [facility] Comment:Antibodies to HCV no t detected; does not exclude the possibility of exposure to HCV. Blood BLOOD SPECIMEN / Unknown Venipuncture / Unknown 02/27/2022 10:35 AM CDT 02/27/2022 10:38 AM CDT [place] [facility] [address] [place] [address], [place] from Last 3 Months or Most Recently Relevant to Health Maintenance
== END 2024-03-19 11:01 | disposition home or self-care (01) ==
LOC: NFLDREF 03-23 17:32
PROVIDERS: PCP Internal Medicine; Referring Provider Internal Medicine; Visit Provider Internal Medicine
DX: N39.0 Urinary tract infection, site not specified (principal)
CPT/HCPCS: 87086

== ENCOUNTER 2024-04-08 10:43 | Outpatient (CLI) | payer BC, SELFPAY ==
--- OUTSIDE RECORDS SUMMARY | 2024-04-08 10:46 | XMS_ITS | Data Portability ---
Author Organization [facility], [facility] Address [address] [place] [address] Care Team Providers Care Blow Molding Machine Operator Name Role Phone ANA PATHAK Referring Provider [phone] Assessment No assessment recorded. Plan of Treatment Reminders Order Date Submit Date Provider Last Modified By Organization Details Last Modified Time Details Appointments None recorded. Lab urinalysis , dipstick 2022 023 [facility], [address], [place], [address], 3 16:02:09 culture, urine 2022 023 [facility], [address], [place], [address], 3 09:52:55 Referral patient navigator referral 2022 023 [email or web address] [id number] Not available 3 07:08:48 Procedures None recorded. Surgeries None recorded. Imaging None recorded. Medication Orders Myrbetriq 50 mg tablet,ext ended release 2022 [email or web address], [address], 3 16:11:02 Patient TargetsNo targets recorded. Patient Instructions Encounter Date Encounter Id Patient Instructions Last Modified By Organization Details Last Modified Time 01/17/2023 [id number] Lisa present s today for voiding complaints, [...] for sling Follow up in 2 months [email or web address] Not available 01/17/2023 16:09:57 Reason for Referral Referring Physician: Edison Araujo, Urology, Encounter Date: 01/17/2023 Results Created Date Observation Date Name Description Value Unit Range Abnormal Flag LastModifiedBy Organization Detail LastModifiedTime 01/18/2001/17/2023 UA WITHO UT MICRO PLYMO UTH color-status YELLOW yellow Not Available [facility] [address] [facility] [address], [place], [address], 01/17/2023 16:02:09 01/18/20 23 01/17/2023 UA WITHO UT MICRO PLYMO UTH clarity-stat us CLEAR clear Not Available [facility] [address] [facility] [address], [place], [address], 01/17/2023 16:02:09 01/18/20 23 01/17/2023 UA WITHO UT MICRO PLYMO UTH glucose-stat us NEGATI VE mg/dL negati ve Not Available [facility] [address] [facility] [address], [place], [address], 01/17/2023 16:02:09 01/18/20 23 01/17/2023 UA WITHO UT MICRO PLYMO UTH bilirubin-ur ine NEGATI VE negati ve Not Available [facility] [address] [facility] [address], [place], [address], 01/17/2023 16:02:09 01/18/20 23 01/17/2023 UA WITHO UT MICRO PLYMO UTH ketones-stat us 40 MG/DL mg/dL negati ve abnormal Not Available [facility] [address] [facility] [address], [place], [address], 01/17/2023 16:02:09 01/18/20 23 01/17/2023 UA WITHO UT MICRO PLYMO UTH SG-status 1.015 1.00-1 .03 Not Available [facility] [address] [place] [address] [address], [place], [address], 01/17/2023 16:02:09 01/18/20 23 01/17/2023 UA WITHO UT MICRO PLYMO UTH pH-status 7.0 5.00-8 .00 Not Available [facility] [address] [facility] [address], [place], [address], 01/17/2023 16:02:09 01/18/20 23 01/17/2023 UA WITHO UT MICRO PLYMO UTH protein-stat us TRACE mg/dL negati ve abnormal Not Available [facility] [address] [facility] [address], [place], [address], 01/17/2023 16:02:09 01/18/20 23 01/17/2023 UA WITHO UT MICRO PLYMO UTH urobilinogen -status 0.2 E.U./D L E.U./ dL 0.2 E.U./d L Not Available [facility] [address] [facility] [address], [place], [address], 01/17/2023 16:02:09 01/18/20 23 01/17/2023 UA WITHO UT MICRO PLYMO UTH nitrites-sta tus POSITI VE negati ve abnormal Not Available [facility] [address] [facility] [address], [place], [address], 01/17/2023 16:02:09 01/18/20 23 01/17/2023 UA WITHO UT MICRO PLYMO UTH blood-urine NEGATI VE negati ve Not Available [facility] [address] [facility] [address], [place], [address], 01/17/2023 16:02:09 01/18/20 23 01/17/2023 UA WITHO UT MICRO PLYMO UTH leuko-status TRACE negati ve abnormal Not Available [facility] [address] [facility] [address], [place], [address], 01/17/2023 16:02:09 01/18/20 23 01/17/2023 UA WITHO UT MICRO PLYMO UTH specimen type VOIDED Not Available [facility] [address] [facility] [address], [place], [address], 01/17/2023 16:02:09 01/18/20 23 01/17/2023 UA WITHO UT MICRO PLYMO UTH performed by PALAK Cruz Not Available [facility] [address] [facility] [address], [place], [address], 01/17/2023 16:02:09 01/18/20 23 01/17/2023 UA WITHO UT MICRO PLYMO UTH total urine volume (mL) 30 /mL Not Available [facility] [address] [facility] [address], [place], [address], 01/17/2023 16:02:09 01/18/20 23 01/17/2023 URINE CULTU RE final report MICROB IOLOGY RESULT S abnormal Not Available [facility] [address] [facility] [address], [place], [address], 01/21/2023 09:52:55 Result Notes None recorded. Problems Name Status Onset Date Resolution Date Notes Provider Name and Address Organization Details Recorded Time Increased frequency of urination Active 01/18/20 23 LISA ARAUJO [facility] [address] [place] [address],[address] [place] [address], [address], [facility] 01/17/2023 11:18:21 Nocturia Active 01/18/20 23 LISA VAN [address], [address], [facility] 01/17/2023 11:18:24 Mixed urinary incontinence Active 01/18/20 23 LISA VAN [address], [address], [facility] 01/17/2023 15:54:55 Urinary tract infectious disease Active 01/22/20 23 LISA VAN [facility] [address] [place] [address],[address], [address], [facility] 01/21/2023 11:58:05 Problem Notes None recorded. Procedures Surgical History Date Name Laterality Status Provider Name and Address Organization Details Recorded Time 01/18/20 23 Past Data Reviewed completed LISARONY ARAUJO [address], [address], [facility] 01/17/2023 11:20:07 01/18/20 23 In and Out Catheterization- female completed LISA ARAUJO [address], [address], [facility] 01/17/2023 16:08:31 05/04/20 22 Fecal blood scrn [facility]assay [facility] 14:51:44 02/02/19 69 Diagnostic colonoscopy completed [...] Name and Address Organization Details Recorded Time 543997 acetamino phen medicatio n dizziness nausea Not [...] Details Last Updated DateTime 01/17/2023 41.6 kg/m2 258274.8382 15333 g 160.02 cm Not Available Health Note [...] Has Tobacco Cessation Counseling Been Provided? Yes [email or web address] Information not available 01/17/2023 On What Date Was Tobacco Cessation Counseling Provided? 01/17/2023 [email or web address] Information not available 01/17/2023 Sex: Unknown Functional Status None recorded. Mental Status None recorded. Family History Relationship Description Onset Age of this Age Resolved Age Notes Mother Family history of br east cancer Medical History Condition Response High Blood Pressure Y Kidney Stones N Depression Y Lung Disease N GERD/Acid Reflux Y Sexually Transmitted Infection N [...] influenza, unspecified formulation 08/17/2022 completed Zuleika love, [facility] 01/17/2023 15:37:21 SARS-COV-2 (COVID-19) vaccine, UNSPECIFIED 08/17/2022 completed Zuleika love, [facility] 01/17/2023 15:37:21 Influenza, MDCK, quadrivalent, PF 06/08/2020 completed Zuleika love, [facility] 01/17/2023 15:37:21 COVID-19, mRNA, LNP-S, PF, 100 mcg/0.5mL dose or 50 mcg/0.25mL dose 11/22/2020 completed Zuleika love, [facility] 01/17/2023 15:37:21 COVID-19, mRNA, LNP-S, PF, 100 mcg/0.5mL dose or 50 mcg/0.25mL dose 12/20/2020 completed Zuleika love, [facility] 01/17/2023 15:37:21 COVID-19, mRNA, LNP-S, PF, 100 mcg/0.5mL dose or 50 mcg/0.25mL dose 08/13/2021 completed Zuleika love, [facility] 01/17/2023 15:37:21 COVID-19, mRNA, LNP-S, PF, 30 mcg/0.3 mL dose, agapito-sucrose 02/27/2022 completed Zuleika love, [facility] 01/17/2023 15:37:21 COVID-19, mRNA, LNP-S, bivalent, PF, 30 mcg/0.3 mL dose 08/17/2022 completed Zuleika love, [facility] 01/17/2023 15:37:21 Tdap 01/14/2008 completed Zuleika love, [facility] 01/17/2023 15:37:21 [facility]dap 02/27/2022 [facility] 15:37:21 Td (adult), 2 Lf tetanus toxoid, preservative free, adsorbed 04/03/2002 completed Zuleika love, [facility] 01/17/2023 15:37:21 Influenza, split virus, quadrivalent, PF 09/13/2022 completed Mikesinacarter Paul ivan, [facility] 01/17/2023 15:37:21 Influenza, split virus, quadrivalent, PF 08/20/2021 completed Mikesinacarter Paul ivan, [facility] 01/17/2023 15:37:21 Past Encounters Encounter ID Performer Location Encounter Start Date Encounter Closed Date Diagnosis/Indication Diagnosis SNOMED-CT Code [id number] LISA ARAUJO, PAC [facility] [address] [place] [address] 01/17/2023 15:29:06 01/18/2023 10:13:22 Increased frequency of urination [id number] Nocturia [id number] Mixed urin jordan incontinence 851468893 Health Concerns Section Related Observation LastModified by Organization Detai ls LastModified Time None Recorded Concern Status LastModified by Organization Details LastModified Time None Recorded Advance Directives Directive None Recorded Payers Encounter Date Sequence Insurance Name Policy Number Policy Kessler Covered Member ID Kessler Member ID Guarantor Name 01/17/2023 1 [place] [id number] Audie Diaz [id number] Lisa Marks Notes Date Note Type Note Provider Name and Address Organization Details Recorded Time 01/17/2023 text/html HPI Notes: 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 triggered by runnign water, urgency. [...] Impact Questionnaire (IIQ-7): [1] Ability to do legal department manager (cooking, housecleaning): Slightly [2] Physical recreation such as walking, or other exercise: Moderately [2] Ability to attend entertainment activities (movie, concerts): Moderately [2] Ability to travel by car more than 30 minutes from home: Moderately [2] Participation in social activities outside your home: Moderately [2] Emotional health (nervousness, depression, etc): Moderately [3] [place] frustrated: Greatly LISA ARAUJO, JOJO [address] [facility], [place], [address], [facility] 01/17/2023 16:11:05 OBGyn Episode No OBEpisode recorded.
--- OUTSIDE RECORDS SUMMARY | 2024-04-08 10:46 | XMS_ITS | Clinical Summary ---
Author Organization [facility] Address [place], [place] [address] Care Team Providers Care Wardrobe Manager Name Role Phone Unavailable Primary Care Provider [...] 10 0mcg/0.5mL) PF, MDV 08/13/2021,12/20/2020,11/22/2020 COVID-19 vaccine ([employer] 30mcg/0.3mL) 12YO+ ADRIAN-SUCROSE PF, MDV 02/27/2022 [...] MAMMO BILAT SCREENING Routine 09/19/2022 4:14 PM [facility] Encounter for screening mammogram for malignant neoplasm of breast LC HIV-1/O/2, 4TH GENERATION Routine 09/13/2022 12:43 PM [facility] Encounter for screening for HIV LC LIPID PANEL AND CHOL/HDL RATIO Routine 09/13/2022 12:43 PM [facility] Screening for lipid disorders OCCULT BLOOD IFOBT STOOL Routine 05/04/2022 3:48 PM CDT Screening for colorectal cancer ANTI HCV Routine 02/27/2022 10:35 AM CDT Need for hepatitis C screening test from Last 3 Months or Most Recently Relevant to Health Maintenance Results * XR MAMMO BILAT SCREENING (09/19/2022 4:14 PM [facility]) Anatomical Region Laterality Modality BREASTS, Breast Left, Breast Right Bilateral Mammography Impressions 09/21/2022 3:36 PM [facility] ??There is no radiographic evidence for malignancy. ??Recommend annual mammograms. MAMMOGRAM ASSESSMENT: ??ACR 1 Negative PATIENTS: You will also receive a letter with your examination results in an easy to read format. ??If you have questions about your results, please contact your referring provider. Narrative 09/21/2022 3:36 PM [facility] For Patients: As a result of the Century Cures Act, medical imaging exams and procedure reports are released immediately into your electronic medical record. You may view this report before your referring provider. If you have questions, please contact your health care provider. XR MAMMO BILAT SCREENING [[id number]] CLINICAL HISTORY: ??This is an asymptomatic 61 [...] PANEL AND CHOL/HDL RATIO (09/13/2022 12:43 PM [facility]) Pathologist [facility] Cholesterol, Total 237(H) 100 - 199 mg/dL 09/15/2022 7:15 AM [facility] Triglycerides 200(H) 0 - 149 mg/dL 09/15/2022 7:15 AM [facility] HDL Cholesterol 45 >39 mg/dL 7:15 AM [facility] ([facility]) VLDL Cholesterol Venkat 37 5 - 40 mg/dL 09/15/2022 7:15 AM [facility]) LDL Chol Calc (NIH) 155(H) 0 - 99 mg/dL 09/15/2022 7:15 AM [facility] ([facility]) T. Chol/HDL Ratio 5.3(H) 0.0 - 4.4 ratio 09/15/2022 7:15 AM [facility] ([facility]) Comment: ?T. Chol/HDL Ratio ?Men ??Women ?1/2 Avg.Risk ??3.4 ?3.3 ?Avg.Risk ??5.0 ?4.4 ? 2X Avg.Risk ??9.6 ?7.1 ? 3X Avg.Risk 23.4 ?? 11.0 Blood BLOOD SPECIMEN / Unknown Venipuncture / Unknown 09/13/2022 12:43 PM [facility] 09/13/2022 12:44 PM [facility] Narrative [facility] ([facility]) - 09/15/2022 7:15 AM [facility] Performed at: ??01 - [facility] [address] [place], [place] ??[id number] Pediatric Dietician: Ayden David MD, Phone: ??[phone] [place] [facility] ([facility]) [facility] [place] [id number], * HIV-1/O/2, 4TH GENERATION (09/13/2022 12:43 PM [facility]) HIV Scr 4th Gen Non Reactive Non Reactive 09/15/2022 11:08 AM [facility] ([facility]) Comment: HIV Negative HIV-1/HIV-2 antibodies and HIV-1 p24 antigen were NOT detected. There is no laboratory evidence of HIV infection. Blood BLOOD SPECIMEN / Unknown Venipuncture / Unknown 09/13/2022 12:43 PM [facility] 09/13/2022 12:44 PM [facility] Narrative [facility] ([facility]) - 09/15/2022 11:08 AM [facility] Performed at: ??01 - [facility] [address] [place], [place] ??[id number] Pediatric Dietician: Ayden David MD, Phone: ??[phone] [place] [facility] ([facility]ET) [facility] * OCCULT BLOOD IFOBT STOOL (05/04/2022 3:48 PM CDT) STOOL BLOOD ,IFOBT Negative Negative 05/11/2022 10:51 AM CDT [facility] Stool STOOL SPECIMEN / Unknown Non-Blood / Unknown 05/04/2022 3:48 PM CDT 05/10/2022 3:48 PM CDT [place] [facility] [address] [place] [address], * ANTI HCV (02/27/2022 10:35 AM CDT) HEPATITIS C ANTIBODY Non-React zbigniew Non-React zbigniew 02/27/2022 7:22 PM CDT [facility] Comment:Antibodies to HCV no t detected; does not exclude the possibility of exposure to HCV. Blood BLOOD SPECIMEN / Unknown Venipuncture / Unknown 02/27/2022 10:35 AM CDT 02/27/2022 10:38 AM CDT [place] [facility] [address] [place] [address], [place] from Last 3 Months or Most Recently Relevant to Health Maintenance
--- NOTE | 2024-04-08 11:00 | CRLHL7_ITS ---
For Patients: As a result of the Century Cures Act, medical imaging exams and procedure reports are released immediately into your electronic medical record. You may view this report before your referring provider. If you have questions, please contact your health care provider. DXA BONE MINERAL DENSITY STUDY Reason for exam: Osteoporosis. Current height (in): 62. Weight (lbs.): 232. Menopause age: 42. Ethnicity: White. 1. Have you had a previous hip or vertebral fracture? No. 2. Have you had any fractures during your adult life which did not result from significant trauma (e.g., auto accident)? No. 3. Did either of your parents have a hip fracture? Yes. 4. Do you smoke? No. 5. Have you ever taken Glucocorticoids? No. 6. Do you have rheumatoid arthritis? No. 7. Do you have secondary osteoporosis? No. 8. Do you drink 3 or more alcoholic drinks per day? No. 9. Are you being treated for osteoporosis? No. 10. Have you ever taken any of the following medications: Actonel, Evista, Fosamax, Miacalcin, Reclast, Boniva, Forteo, HRT (i.e., estrogen/hormone therapy), Protelos, Prolia, Vitamin D, Calcium, other ??? please specify. ANSWER: Yes, Fosamax (i.e., alendronate) and vitamin D. 11. Do you have any of the following medical conditions: Anorexia or bulimia, asthma or emphysema, end stage renal disease, hyperparathyroidism, any seizure disorders, cancer, inflammatory bowel diseases, hysterectomy, other ??? please specify. ANSWER: Yes, asthma or emphysema and hysterectomy. 12. What was your maximum height (inches)? 63. 13. Do you perform weight bearing exercise regularly? No. 14. Do you regularly consume dairy products? Yes. 15. Do you drink caffeinated beverages? Yes. 16. At what age did your period start? 11. 17. Are you premenopausal? No. 18. How many full-term pregnancies have you had? 0. 19. Have you ever missed your period for more than 6 months in a row (not including or menopause)? No. TECHNIQUE: Bone mineral density study was performed using the [employer]. FINDINGS: The results of the study expressed as bone mineral density (BMD) are as follows: Lumbar spine L2 to L4: BMD: 0.794 g/cm2. T-score: -2.6. Z-score: -0.7 Neck Left: BMD: 0.464 g/cm2. T-score: -3.5. Z-score: -1.9 Right: BMD: 0.588 g/cm2. T-score: -2.4. Z-score: -0.8 Total Left: BMD: 0.700 g/cm2. T-score: -2.0. Z-score: -0.7 Right: BMD: 0.803 g/cm2. T-score: -1.1. Z-score: 0.1 IMPRESSION: Osteoporosis. *Comparison exams done prior to 02/2020 were performed on different unit, [employer]. COMPARISON: Compared with scan of 03/25/2017, the bone mineral density has increased by 0.9 percent at the spine and decreased by 4.8 percent at the hip. Francisco Liang M.D. Diagnostic Radiologist [email or web address] KELBY/[email or web address] rubalcava/Dictated by: Francisco Liang MD @ 04/09/2024 12:53:00 PM (Electronically Signed)
== END 2024-04-08 10:44 | disposition home or self-care (01) ==
LOC: RAD 10:44
PROVIDERS: PCP Internal Medicine; Visit Provider Internal Medicine
DX: M81.0 Age-related osteoporosis without current pathological fracture (principal)
CPT/HCPCS: 77080

== ENCOUNTER 2024-12-01 15:29 | Outpatient (CLI) | payer BC, SELFPAY ==
--- NOTE | 2024-12-01 16:00 | CRLHL7_ITS ---
For Patients: As a result of the Century Cures Act, medical imaging exams and procedure reports are released immediately into your electronic medical record. You may view this report before your referring provider. If you have questions, please contact your health care provider. BILATERAL SCREENING MAMMOGRAM WITH COMPUTER-AIDED DETECTION AND TOMOSYNTHESIS TECHNIQUE: CC and MLO views were obtained. These mammographic images have been obtained using full-field digital technique. These mammographic images were interpreted with the benefit of computer-aided detection. Breast Tomosynthesis was used in this interpretation. COMPARISON FILM: 02/26/17, 11/04/14, 07/07/13. FINDINGS: There are scattered areas of fibroglandular density. IMPRESSION: There is no radiographic evidence for malignancy. ASSESSMENT: BI-RADS Category 1: Negative RECOMMENDATION: Routine screening mammogram in 1 year. A lay language report of this examination will be provided to the patient. Francisco Liang M.D. Diagnostic Radiologist [email or web address] SP/Dictated by: Francisco Liang MD @ 12/02/2024 10:42:00 AM (Electronically Signed)
== END 2024-12-01 15:30 | disposition home or self-care (01) ==
LOC: MAMMO 15:29
PROVIDERS: PCP Internal Medicine; Visit Provider Obstetrics & Gynecology
DX: Z12.31 Encounter for screening mammogram for malignant neoplasm of breast (principal)
CPT/HCPCS: 77063; 77067

== ENCOUNTER 2025-05-10 08:42 | Outpatient (CLI) | payer BC, SELFPAY ==
--- NOTE | 2025-05-10 10:03 | P.ANES_ITS ---
Anesthesia Charges Start Date/Time Anesthesia Start Date: 05/10/25 Anesthesia Start Time: 09:33 Stop Date/Time Anesthesia Stop Date: 05/10/25 Anesthesia Stop Time: 09:59 Coding CPT Codes CPT Codes: ANES LWR INTST NDSC NOS - 57792 ([id number]) P3 - PATIENT W/SEVERE SYS DISEASE, QK - HUSKER OPERATOR 2-4 CNCRNT ANES PROC
--- NOTE | 2025-05-10 10:03 | W.ANESCHARGE ---
Anesthesia Charges Start Date/Time Anesthesia Start Date: 05/10/25 Anesthesia Start Time: 09:33 Stop Date/Time Anesthesia Stop Date: 05/10/25 Anesthesia Stop Time: 09:59 Coding CPT Codes CPT Codes: ANES LWR INTST NDSC NOS - 01861 ([id number]) P3 - PATIENT W/SEVERE SYS DISEASE, QK - LOAD MANAGER 2-4 CNCRNT ANES PROC
--- NOTE | 2025-05-10 10:09 | P.ANES_ITS ---
Anesthesia Charges Start Date/Time Anesthesia Start Date: 05/10/25 Anesthesia Start Time: 09:33 Stop Date/Time Anesthesia Stop Date: 05/10/25 Anesthesia Stop Time: 09:59 Coding CPT Codes CPT Codes: ANES LWR INTST NDSC NOS - 17245 ([id number]) QK - GEODETIC ADVISOR 2-4 CNCRNT ANES PROC, QX - MACHINE TOOL DRESSER SVC W/ MED DIRECTION, P3 - PATIENT W/SEVERE SYS DISEASE
--- NOTE | 2025-05-10 10:09 | W.ANESCHARGE ---
Anesthesia Charges Start Date/Time Anesthesia Start Date: 05/10/25 Anesthesia Start Time: 09:33 Stop Date/Time Anesthesia Stop Date: 05/10/25 Anesthesia Stop Time: 09:59 Coding CPT Codes CPT Codes: ANES LWR INTST NDSC NOS - 12094 ([id number]) QK - DIRECTOR OF PRECLINICAL RESEARCH 2-4 CNCRNT ANES PROC, QX - SHELLFISH MANAGER SVC W/ MED DIRECTION, P3 - PATIENT W/SEVERE SYS DISEASE
== END 2025-05-10 08:43 | disposition home or self-care (01) ==
LOC: OP CLINIC 08:43
PROVIDERS: PCP Internal Medicine; Visit Provider Surgery
DX: Z12.11 Encounter for screening for malignant neoplasm of colon (principal); K62.1 Rectal polyp; K57.30 Diverticulosis of large intestine without perforation or abscess without bleeding
CPT/HCPCS: 00811; 00812; 45385; 88305; J2704